=== PATIENT | male | born 1940 | race Caucasian/White ===

== ENCOUNTER 2023-05-06 15:26 | Outpatient (CLI) | payer MEDICARE, BC, SELFPAY ==
--- NOTE | 2023-05-06 16:00 | CRLHL7_ITS ---
For Patients: As a result of the Century Cures Act, medical imaging exams and procedure reports are released immediately into your electronic medical record. You may view this report before your referring provider. If you have questions, please contact your health care provider. INDICATION: Dizziness and left paresthesias TECHNIQUE: CT head without contrast. COMPARISON: None. FINDINGS: CSF spaces: Within normal limits for age. Brain parenchyma: The terrazas-white differentiation is normal. No sign of mass, hemorrhage, or midline shift. Mild cerebral atrophy. Small low-density within the deep white matter. Skull base and calvarium: The visualized paranasal sinuses and mastoid air cells demonstrate no acute or significant findings. The visualized orbits are grossly unremarkable. No skull fractures. Atherosclerosis. IMPRESSION: 1. No intracranial bleed or mass effect. 2. Cerebral atrophy with nonspecific white matter disease, likely microangiopathy. Please note that all CT scans at this facility use dose modulation, iterative reconstruction, and/or weight-based dosing when appropriate to reduce radiation dose to as low as reasonably achievable. Dictated by Odin Gaming MD @ 05/06/2023 4:01:57 PM (Electronically Signed)
== END 2023-05-06 15:27 | disposition home or self-care (01) ==
PROVIDERS: PCP Family Medicine; Visit Provider Family Medicine
DX: G45.9 Transient cerebral ischemic attack, unspecified (principal); R42 Dizziness and giddiness
CPT/HCPCS: 70450; 84443; 85730

== ENCOUNTER 2024-01-27 11:28 | Outpatient (CLI) | payer MEDICARE, BC, SELFPAY ==
--- OUTSIDE RECORDS SUMMARY | 2024-01-27 11:38 | XMS_ITS | Continuity of Care Document ---
Author Name [facility] Organization [facility] Care Team Providers Care Glassine Machine Tender Name Role Phone [facility] Unavailable Unavailable Problems Combined list of problems from Department of [facility] and Veterans Affairs facilities. It does not include entries that were removed or entered in error. Problem Status Onset Date Problem Type Date of Resolution Comments Source Benign essential hypertension Active Condition [facility] Benign hypertension Active Condition [facility] History of mitral valve repair Active Condition [facility] Hyperlipidemia Active Condition [facility] Impact[facility] cerumen Active Condition [facility] Lipidemia Active Condition [facility] Lower urinary tract symptoms [facility] Nonexudative age-related macular degeneration Active Condition [facility] Obesity Active Condition [facility] Sensorneural Comb TYP Bilat Active Condition [facility] Subjective tinnitus Active Condition [facility] Diagnosis: ICD-10-CM 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, l eye, 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 [facility] Diagnosis: ICD-10-CM H35.3114 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, r eye, 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 [facility] Diagnosis: ICD-10-CM H90.3 Sensorineural hearing loss, bilateral Active Diagnosis [facility] Diagnosis: ICD-10-CM Z00.00 Encntr for general adult medical exam w/o abnormal findings Active Diagnosis [facility] Diagnosis: ICD-10-CM H35.30 Unspecified macular degeneration Active Diagnosis [facility] Medications Combined list of outpatient medications from Department of Defense and Veterans Affairs facilities.Medications provided include 1) outpatient medications from the last 15 months, and 2) patient-reported medications. Medication Details Route Status Patient Instructions Prescription Expires Prescription Number Last Dispense Date Ordering Provider Order Date Order Qty Source ACETAMINOPH EN TAB ACETAMIN OPHEN TAB Non-VA TAKE 500-1000 MG BY MOUTH Q6H PRN Aug 02, 2017 Non-VA Document ed by: Satinder ALBERTO [facility] A Document ed at: [facility] 2017 [facility] ATORVASTATI N [place] 40MG TAB ATORVAST ATIN [place] 40MG TAB Non-VA TAKE ONE-HALF TABLET BY MOUTH AT BEDTIME Aug 02, 2017 Non-VA Document ed by: Satinder ALBERTO A Document ed at: [facility] ORAL ACTIVE DOLLY,[facility] A 2017 [facility] DONEPEZIL HCL 10MG TAB DONEPEZI L HCL 10MG TAB Non-VA TAKE ONE-HALF TABLET BY MOUTH TWICE A DAY Jun 21, 2020 Non-VA Document ed by: Satinder ALBERTO [facility] A Document ed at: [facility] ORAL ACTIVE DOLLY,[facility] A 2020 [facility] FINASTERIDE 5MG TAB FINASTER NOAH 5MG TAB Non-VA TAKE ONE TABLET BY MOUTH EVERY DAY Jun 21, 2020 Non-VA Document ed by: Satinder ALBERTO A Document ed at: [facility] ORAL ACTIVE DOLLY,[facility] A 2020 [facility] HYDROCHLORO THIAZIDE 25MG TAB HYDROCHL OROTHIAZ NOAH 25MG TAB Non-VA TAKE ONE TABLET BY MOUTH EVERY DAY Aug 02, 2017 Non-VA Document ed by: Satinder ALBERTO [facility] A Document ed at: [facility] ORAL ACTIVE DOLLY,[facility] A 2017 [facility] KETOTIFEN 0.025% SOLN,OPH KETOTIFE N 0.025% SOLN,OPH Active INSTILL 1 DROP IN BOTH EYES TWO TIMES A DAY NEEDED FOR EYE ALLERGIE S FOR EYE ALLERGIE S October 10, 2023 5 October 10, 2024 [id number] A October 11, 2023 [facility] OPHTHA LMIC ACTIVE 10/10/2024 [id number] BULMARO MAYA 2023 5 [facility] KETOTIFEN 0.025% SOLN,OPH KETOTIFE N 0.025% SOLN,OPH Disconti nued INSTILL 1 DROP IN BOTH EYES TWO TIMES A DAY NEEDED FOR EYE ALLERGIE S FOR EYE ALLERGIE S Oct 04, 2022 5 Oct 05, 2023 [id number] Aug 26, 2023 [facility] Junito [facility] OPHTHA LMIC DISCONT INUED 10/05/2023 [id number] [facility]UL[facility] 2022 5 [facility] LISINOPRIL 40MG TAB LISINOPR [place] 40MG TAB Non-VA TAKE ONE-HALF TABLET BY MOUTH EVERY DAY Aug 02, 2017 Non-VA Document ed by: Satinder ALBERTO A Document ed at: [facility] ORAL ACTIVE DANAE ALBERTO A 2017 [facility] MULTIVIT/OP HTH AREDS2/LUTE IN/ZEAXANTH IN CAP/TAB MULTIVIT /OPHTH AREDS2/L UTEIN/ZE AXANTHIN CAP/TAB Active TAKE 1 CAP/TAB BY MOUTH TWICE A DAY October 10, 2023 120 October 10, 2024 [id number] K November 05, 2023 [facility] ORAL ACTIVE 10/10/2024 [id number] BULMARO MAYA 2023 120 [facility] MULTIVIT/OP HTH AREDS2/LUTE IN/ZEAXANTH IN CAP/TAB MULTIVIT /OPHTH AREDS2/L UTEIN/ZE AXANTHIN CAP/TAB Disconti nued TAKE 1 CAP/TAB BY MOUTH TWICE A DAY Oct 04, 2022 120 Oct 05, 2023 [id number] J Sep 16, 2023 [facility] ORAL DISCONT INUED 10/05/2023 [id number] 4 BULMARO MAYA 2022 120 [facility] NITROGLYCER IN 0.4MG TAB,SUBLING UAL NITROGLY CERIN 0.4MG TAB,SUBL INGUAL Non-VA DISSOLVE ONE TABLET UNDER THE TONGUE EVERY 5 MINUTES FOR UP TO 3 DOSES IF NEEDED Jul 10, 2021 Non-VA Document ed by: Satinder ALBERTO A Document ed at: [facility] SUBLIN GUAL ACTIVE DANAE ALBERTO 2021 [facility] TAMSULOSIN HCL 0.4MG CAP TAMSULOS IN HCL 0.4MG CAP Non-VA TAKE 1 CAPSULE BY MOUTH EVERY DAY Aug 02, 2017 Non-VA Document ed by: Satinder ALBERTO [facility] A Document ed at: [facility] ORAL ACTIVE DANAE ALBERTO 2017 [facility] Immunizations Combined list of available immunizations from the Department of Defense and Veterans Affairs facilities. Immunization Series Date Given Administered By Site Reaction Lot Number CVX Code Drug Bladder Blower Status Comments Source COVID-19 ([employer]), MRNA, LNP-S, BIVALENT BOOSTER, PF, 30 MCG/0.3 ML DOSE 1 2021 300 complet ed [facility] COVID-19 ([employer]), MRNA, LNP-S, PF, 30 MCG/0.3 ML DOSE 3 2020 208 complet ed [facility] COVID-19 ([employer]), MRNA, LNP-S, PF, 30 MCG/0.3 ML DOSE 2 2020 208 complet ed PFR; [id number]; 1 [facility] COVID-19 ([employer]), MRNA, LNP-S, PF, 30 MCG/0.3 ML DOSE 1 2020 208 complet ed PFR; [id number]; 1 [facility] INFLUENZA, SEASONAL, INJECTABLE 2017 141 complet ed [facility] TDAP 2017 115 complet ed [employer] [id number] exp 05/24/19 [facility] INFLUENZA, HIGH DOSE SEASONAL 2016 135 complet ed [facility] INFLUENZA, HIGH DOSE SEASONAL 2015 135 complet ed [facility] INFLUENZA, SEASONAL, INJECTABLE 2014 141 complet ed [facility] PNEUMOCOCCAL POLYSACCHARID E PPV23 2014 33 complet ed [facility] INFLUENZA, HIGH DOSE SEASONAL 2013 135 complet ed [facility] ZOSTER LIVE 2013 121 complet ed [facility] Encounters Combined list of: 1) Encounters from Department of Veterans Affairs facilities going back up to thelast 18 months. 2) Encounters from the Department of Defense facilities going back up to 280 months. Location Location Details Encounter Type Encounter Number Reason For Visit Attending Provider ADM Date DC Date Status Disposition Source [facility] Outpatient Encounter [id number] 07/17 [facility] OFFICE O/P EST MOD 30-39 MIN [id number] Diagnos is: ICD-10- CM H35.30 Unspeci fied macular degener ation<b r/> FRANCESCO,STEW ART J 10/04 [facility] Outpatient Encounter [id number] Diagnos is: ICD-10- CM Z00.00 Encntr for general adult medical exam w/o abnorma l finding s
MURRAY ALBERTO H A 10/12 [facility] OFF/OP EST MAY X REQ PHY/QHP [id number] Diagnos is: ICD-10- CM H90.3 Sensori neural hearing loss, bilater al
REBECCA FERRISRA E 07/09 [facility] HEARING AID REPAIR/MOD IFYING [id number] Diagnos is: ICD-10- CM H90.3 Sensori neural hearing loss, bilater al
DOC BARAHONA ICA L 08/19 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
FRANCESCO,STEW ART J 10/09 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
SIRIA HARTMAN 11/11 [facility] Social History Combined list of available smoking, tobacco, and other social history from Department of Defense and Veterans Affairs facilities. Social History Type Response Date Comment Sourc e Tobacco smoking status NHIS VA-TOBACCO FORMER USER 10/12/2022 [facility] History of tobacco use PR-TOBACCO QUIT 1 5 YRS OR MORE 10/12/2022 [facility] History of tobacco use VA-TOBACCO FORMER USER 06/17/2018 [facility] History of tobacco use FORMER TOBACCO US ER 7Y OR GREATER 08/02/2017 [facility] History of tobacco use FORMER TOBACCO US ER 7Y OR GREATER 08/02/2016 [facility] History of tobacco use FORMER TOBACCO US ER 7Y OR GREATER 06/28/2015 [facility] History of tobacco use FORMER TOBACCO US ER 7Y OR GREATER 04/21/2014 [facility] Plan of Care List of future care activities from Department of Veterans Affairs facilities. Additional future care activities may be listed in the Assessment and Plan section. Date/Time Care Activity Care Activity Detail Facili ty 05/12/2024 AMBULATORY - SURGERY AMBULATORY - SURGERY [facility] Advance Directives List of completed, amended, or rescinded Advance Directives on record at Department of Veterans Affairs facilities. An actual copy of the Directive is not included. Date Advance Directive Provider Source 04/10/2019 ADVANCE DIRECTIVE MIGUEL CORBETT [facility] 04/10/2019 ADVANCE DIRECTIVE DISCUSSION MIGUEL CORBETT [facility]
--- OUTSIDE RECORDS SUMMARY | 2024-01-27 11:38 | XMS_ITS | Encounter Summary ---
Author Organization [facility] Address [address] [place] [address]. [place] [address] Care Team Providers Care Analytical Chemist Name Role Phone Mango Almanza Primary Care Provider + [phone] Moi Chavez MD Unavailable [phone] Moi Chavez MD Unavailable [phone] Reason for Visit * Reason Onset Date Comments Orders 11/20/2021 Labs UA Encounter Details Date Type Department Care Team (Late st Contact Info) Description 11/20/2021 Telephone [facility] Urology Clinic [address] [place] [address] Moi Chavez MD [address] [place], [place] [address] Orders (Labs UA) Social History Tobacco Use Types Packs/Day Years Used Date Smoking Tobacco: Former Smokeless Tobacco: Never Alcohol Use Standard Drinks/Week Comments Yes 1 (1 standard drink = 0.6 oz pur e alcohol) AUDIT-C Answer Date Recorded Q1: How often do you have a drink containing alc ohol? 2-4 times a month 05/26/2019 Average Number of Drinks Not on file 019 Frequency of Binge Drinking Not on file 05/10 PHQ-2 Answer Date Recorded PHQ-2 Score 0 12/29/2019 Sex and Gender Information Value Date Recorded Sex Assigned at Not on file Gender Identity Not on file Sexual Orientation Not on file COVID-19 Exposure Response Date Recorded In the last 10 days, have yo u been in contact with someone who was confirmed or suspected to have Coronavirus/COVID-19? Unable to assess 11/20/2021 8:35 AM CDT documented as of this encounter Miscellaneous Notes * Telephone Encounter - Bella Hook - 11/20/2021 8:37 AM CDT [facility] Phone Message May a detailed message be left on voicemail: yes Reason for Call: Order(s): Other: Reason for requested: Labs UA Date needed: 02/08/22 Provider name: Dr Chavez Action Taken: Message routed to: Other: uro Travel Screening: Not Applicable documented in this encounter Plan of Treatment Upcoming Encounters Date Type Department Care Team (Late st Contact Info) Description 03/12/2024 9:00 AM CDT Office Visit [facility] Urology Clinic [address] [place] [address] Moi Chavez MD [address] [id number] documented as of this encounter Visit Diagnoses Diagnosis Benign prostatic hyperplasia, unspecified whether lower urinary tract symptoms present- Primary documented in this encounter Care Teams Analytical Chemist Relationship Specialty Start Date End Date Mango Almanza [address] [address] PCP - General Family Practice 03/03/15 Moi Chavez MD [address] [address] Urology 11/15/20 Moi Chavez MD [address] [id number] Assigned Surgical Provider 02/12/21 documented as of this encounter
--- OUTSIDE RECORDS SUMMARY | 2024-01-27 11:38 | XMS_ITS | Clinical Summary ---
Author Organization [facility] Address [address] [place] [address] Care Team Providers Care Tug Master Name Role Phone Mango Almanza Primary Care Provider + [phone] Moi Chavez MD Unavailable [phone] Moi Chavez MD Unavailable [phone] Allergies Active Allergy Reactions Criticality Noted Date Comments Carvedilol Other (See Comments) 10/29/2022 Bradycardia, dizzy Medications Medication Sig Dispensed Refills Start Date End Date Status aspirin 81 MG EC tablet Take 81 mg by mouth daily Active atorvastatin (LIPITOR) 20 MG tablet Take 20 mg by mouth At Bedtime Active nitroglycerin (NITROSTAT) 0.[address] 0.4 mg under the tongue every 5 minutes as needed for chest pain Active multivitamin (OCUVITE) TABS Take 1 tablet by mouth daily Active metoprolol (LOPRESSOR) 25 MG tablet Take 25 mg by mouth 2 times daily Active hydrochlorothiazide 12.5 MG TABS Take 12.5 mg by mouth every morning Active lisinopril (PRINIVIL,ZESTRIL) 20 MG tablet Take 20 mg by mouth At Bedtime Active carvedilol (COREG) 3.125 MG tablet Take 3.125 mg by mouth Active donepezil (ARICEPT) 5 MG tablet 02/24/2019 Active Albuterol Sulfate (VENTOLIN HFA IN) Inhale 90 mcg into the lungs as needed 2 puffs as needed Active acetaminophen (TYLENOL) 500 MG tablet Take 500-1,000 mg by mouth every 6 hours as needed for mild pain Active hydrocortisone 2.5 % creamIndications:Akash gn prostatic hyperplasia with incomplete bladder emptying Apply topically 2 times daily Active ketoconazole (NIZORAL) 2 % external creamIndications:Akash gn prostatic hyperplasia with incomplete bladder emptying Apply topically daily Active ELIQUIS ANTICOAGULANT 5 MG tablet Take 5 mg by mouth 2 times daily Active finasteride (PROSCAR) 5 MG tabletIndications:Jeb ign prostatic hyperplasia with incomplete bladder emptying Take 1 tablet (5 mg) by mouth daily 90 tablet 3 02/28/2023 Active tamsulosin (FLOMAX) 0.4 MG capsuleIndications:Be nign prostatic hyperplasia with incomplete bladder emptying Take 1 capsule (0.4 mg) by mouth daily 90 capsule 3 02/28/2023 Active Active Problems No known active problems Family History Medical History Relation Comments Parkinsonism Father Cancer Sister Relation Status Comments Brother 1 Alive Brother 2 Alive Father Maternal Grandfather Maternal Grandmother Mother Paternal Grandfather Paternal Grandmother Sister Social History Tobacco Use Types Packs/Day Years Used Date Smoking Tobacco: Former Smokeless Tobacco: Never Tobacco Cessation:Counseling Given: Not Answered Alcohol Use Standard Drinks/Week Comments Yes 1 (1 standard drink = 0.6 oz pur e alcohol) AUDIT-C Answer Date Recorded Q1: How often do you have a drink containing alc ohol? 2-4 times a month 05/26/2019 Average Number of Drinks Not on file 019 Frequency of Binge Drinking Not on file 05/10 PHQ-2 Answer Date Recorded PHQ-2 Score 0 12/29/2019 Adolescent Education Answer Date Record ed Getting School Help Needed Not on file 03/25 Sex and Gender Information Value Date Recorded Sex Assigned at Not on file Gender Identity Not on file Sexual Orientation Not on file Last Filed Vital Signs Vital Sign Reading Time Taken Comments Blood Pressure 152/98 02/28/2023 10:20 AM CDT Pulse 63 02/28/2023 10:20 AM CDT Temperature 37 ??C (98.6 ??F) 03/04/2015 4:42 AM CDT Respiratory Rate 18 03/04/2015 10:37 AM CDT Oxygen Saturation 95% 02/10/2021 3:20 PM CDT Inhaled Oxygen Concentration - - Weight 108.9 kg (240 lb) 02/28/2023 10:20 AM CDT Height 188 cm (6' 2) 02/28/2023 10:20 AM CDT Body Mass Index 30.81 02/28/2023 10:20 AM CDT Plan of Treatment Upcoming Encounters Date Type Department Care Team (Late st Contact Info) Description 03/12/2024 9:00 AM CDT Office Visit [facility] Urology Clinic [address] [place] [address] Moi Chavez MD [address] [place] [address] Health Maintenance Due Date Last Done Comments ADVANCE CARE PLANNING 1940 ANNUAL REVIEW OF HM ORDERS 1940 LIPID 1940 RSV VACCINE ( & 60+) (1 - 1-dose 60+ series) 1999 FALL RISK ASSESSMENT 10/13/2004 MEDICARE ANNUAL WELLNESS VISIT 10/13/2004 ZOSTER IMMUNIZATION (2 of 3) 03/05/2014 01/08/2014, 03/18/2007 PHQ-2 (once per calendar year) 2023 12/29/2019, 05/26/2019 INFLUENZA VACCINE (#1) 2024 , 03/20/2022, 04/03/2021, Additional history exists DTAP/TDAP/TD IMMUNIZATION (4 - Td or Tdap) 08/02/2027 08/02/2017, 01/12/2016, 07/24/2010, Additional history exists Pneumococcal Vaccine: 65+ Years Completed 10/26/2014, 10/26/2014, 06/10/2014, Additional history exists COVID-19 Vaccine Completed 11/08/2023, , 03/05/2022, Additional history exists HPV IMMUNIZATION Aged Out No longer e ligible based on patient's age to complete this topic IPV IMMUNIZATION Aged Out No longer e ligible based on patient's age to complete this topic MENINGITIS IMMUNIZATION Aged Out No l onger eligible based on patient's age to complete this topic RSV MONOCLONAL ANTIBODY Aged Out No l onger eligible based on patient's age to complete this topic Advance Directives For more information, please contact: [phone] * Full Code (Latest Code Status on File) Date Activated Date Inactivated Comments 03/04/2015 10:20 AM * Full Code Date Activated Date Inactivated Comments 03/03/2015 6:33 PM 03/04/2015 10:20 AM Care Teams Tug Master Relationship Specialty Start Date End Date Mango Almanza [address] [address] PCP - General Family Practice 03/03/15 Moi Chavez MD [address] [address] Urology 11/15/20 Moi Chavez MD [address] [id number] Assigned Surgical Provider 02/12/21
--- OUTSIDE RECORDS SUMMARY | 2024-01-27 11:38 | XMS_ITS | Referral Summary ---
Author Organization [facility] Address [address] [place] [address] Care Team Providers Care Section Housekeeper Name Role Phone Unavailable Primary Care Provider Unavailabl e Source Comments Patient records contain information from all sites at [facility]. For routine questions regarding patient records, call [phone] during business hours, M-F 8:00 AM - 5:00 PM Central Time. Record requests for emergency care only can be directed to [phone] at any time.[facility] Allergies Active Allergy Reactions Criticality Noted Date Comments Carvedilol Other (see comments) 10/29/2022 Bradycardia, dizzy Medications Medication Sig Dispensed Refills Start Date End Date Status atorvastatin (LIPITOR) 20 mg tablet Take 20 mg by mouth daily. Active hydroCHLOROthiazid e (HYDRODIURIL) 25 mg tablet Take 25 mg by mouth daily. Active lisinopril (PRINIVIL,ZESTRIL) 20 mg tablet Take 20 mg by mouth daily. Active tamsulosin (FLOMAX) 0.4 mg 24 hr capsule Take 0.4 mg by mouth daily. Active vitamin A,C,S-jhgirs-flzmu als (OCUVITE W/LUTEIN) 1,000 Unit-200 mg-60 Unit-2 mg tablet Take 1 tablet by mouth 2 (two) times a day. Active albuterol (PROVENTIL HFA,VENTOLIN HFA) 90 mcg/actuation inhaler Inhale 2 puffs every 4 (four) hours as needed for wheezing. Active diclofenac sodium (VOLTAREN) 1 % gel Apply topically 2 (two) times a day as needed. Active acetaminophen (TYLENOL) 500 mg capsule Take 1,000 mg by mouth every 6 (six) hours as needed for pain. Active donepeziL (ARICEPT) 5 mg tablet Take 5 mg by mouth at bedtime. 04/29/2021 Active finasteride (PROSCAR) 5 mg tablet Take 5 mg by mouth daily. 05/28/2021 Active memantine (NAMENDA) 10 mg tablet 06/06/2021 Active nitroglycerin (NITROSTAT) 0.[address] 1-3 tablets under the tongue as needed. 10/03/2011 Active hydrocortisone (HYTONE) 2.5 % cream Apply topically as needed. Active ketoconazole (NIZORAL) 2 % cream Apply topically as needed. Active Eliquis 5 mg tablet Take 1 tablet (5 mg total) by mouth 2 (two) times a day. 180 tablet 3 01/03/2023 Active amoxicillin (AMOXIL) 500 mg capsule TAKE FOUR CAPSULES BY MOUTH 1 HOUR PRIOR TO DENTAL APPOINTMENT 02/22/2023 Active Active Problems Problem Noted Date Diagnosed Date Lightheadedness 05/23/2023 Atrial Fibrillation Other Persistent 05/23/2023 Coronary Stent Status Post 01/03/2023 Repair Mitral Valve Status Post 11/07/2017 Coronary Artery Disease Without Angina Pectoris 11/14/2016 Overview (12/15/2016): Coronary Artery Disease (CAD) NOS Per External Records Hypertensive Heart Disease Without Heart Failure 11/14/2016 Overview (12/15/2016): Hypertension (HTN) NOS Per External Records Immunizations Name Administration Dates Next Due HZV (ZOSTAVAX) 03/18/2007 Influenza, Unspecified 04/03/2016 Pneumococcal, Unspecified 10/26/2014,02/28/2006 Td (Adult), adsorbed 11/22/2006 Tdap 01/12/2016 Social History Tobacco Use Types Packs/Day Years Used Date Smoking Tobacco: Former Smokeless Tobacco: Never Tobacco Cessation:Counseling Given: Not Answered Alcohol Use Standard Drinks/Week Comments Not Currently 0 (1 standard drink = 0.6 oz pur e alcohol) a couple times a month maybe Nutrition Answer Date Recorded Nutrition: EVOO Fat Source Unknown 08/12 Nutrition: Servings of Fruits/Vegetables per Day Not on file 08/12/2020 Dental Answer Date Recorded Dental: Regular Dentist Unknown 08/13/19 Sex and Gender Information Value Date Recorded Sex Assigned at Not on file Gender Identity Not on file Sexual Orientation Not on file Last Filed Vital Signs Vital Sign Reading Time Taken Comments Blood Pressure 125/83 05/23/2023 9:08 AM SPOILAGE WORKER Pulse 51 05/23/2023 9:03 AM SPOILAGE WORKER Temperature 36.3 ??C (97.3 ??F) 05/23/2023 9:03 AM CS T Respiratory Rate 16 06/08/2021 12:53 PM SPOILAGE WORKER Oxygen Saturation 95% 05/23/2023 9:03 AM SPOILAGE WORKER Inhaled Oxygen Concentration - - Weight 107 kg (236 lb 12.4 oz) 05/23/2023 9:03 A M SPOILAGE WORKER Height 186.6 cm (6' 1.47) 01/03/2023 8:43 AM CD T Body Mass Index 30.84 01/03/2023 8:43 AM CDT Plan of Treatment Not on file Medical Devices Implanted Type Area Shot Peen Operator Device Identifier Shelf Expiration Date Model / Serial / Lot Xience Stent 2.5 X 15 - [id number] Implanted:Qty: 1 on 10/03/2011 Cardiac Stent Durán Description:Device Manufactu rer - [employer]. Device Status Text - [id number]. Ring Annuloflex Carbomedics 34mm - [place] [id number] Implanted:Qty: 1 on 12/01/2014 Cardiac Valve Prosthesis Other/Legacy - See Implant Description Carbomedics Description:Device Manufactu rer - Carbomedics. Body Location - Other. Mitral. Device Status Text - [id number]. Procedures Procedure Name Priority Date/Time Associated Diagnosis Comments BASIC METABOLIC PANEL, S/P Routine 03/30/2021 2:31 PM CDT Bradycardia from Last 3 Months or Most Recently Relevant to Health Maintenance Results * (ABNORMAL) Basic Metabolic Panel (03/30/2021 2:31 PM CDT) Pathologist [facility] Potassium, P 3.8 3.6 - 5.2 mmol/L 03/30/2021 3:29 PM CDT CNFL Comment:Testing performed on serum Sodium, P 142 135 - 145 mmol/L 03/30/2021 3:29 PM CDT CNFL Chloride, P 101 98 - 107 mmol/L 03/30/2021 3:29 PM CDT CNFL Bicarbonate, P 34(H) 22 - 29 mmol/L 03/30/2021 3:29 PM CDT CNFL Anion Gap, P 7 7 - 15 03/30/2021 3:29 PM CDT CNFL BUN (Blood Urea Nitrogen), P 17 8 - 24 mg/dL 03/30/2021 3:29 PM CDT CNFL Creatinine 1.19 0.74 - 1.35 mg/dL 03/30/2021 3:29 PM CDT CNFL eGFR-Black/Afric an Romanian 66 >=60 mL/min/BSA 03/30/2021 3:29 PM CDT CNFL Comment: ----ADDITIONAL INFORMATION---- Estimated GFR calculated using the 2009 CKD_EPI creatinine equation. eGFR Non-Black/Sahra n Romanian 57(L) >=60 mL/min/BSA 03/30/2021 3:29 PM CDT CNFL Comment: ----ADDITIONAL INFORMATION---- Estimated GFR calculated using the 2009 CKD_EPI creatinine equation. Calcium, Total, P 9.4 8.8 - 10.2 mg/dL 03/30/2021 3:29 PM CDT CNFL Glucose, P 102 70 - 140 mg/dL 03/30/2021 3:29 PM CDT CNFL Blood (Blood, Venous) 03/30/2021 2:31 PM CDT 03/30/2021 2:33 PM CDT Lennox Koroma M.D. LAB BLOOD ADD-ON [facility] [address] [place] [id number], [facility] CNFL [facility] in [address] [address] from Last 3 Months or Most Recently Relevant to Health Maintenance
--- OUTSIDE RECORDS SUMMARY | 2024-01-27 11:38 | XMS_ITS | Clinical Summary ---
Author Organization [facility] Address [address] [place] [address] Care Team Providers Care Patient Support Assistant Name Role Phone Unavailable Primary Care Provider Unavailabl e Source Comments Patient records contain information from all sites at [facility]. For routine questions regarding patient records, call [phone] during business hours, M-F 8:00 AM - 5:00 PM Central Time. Record requests for emergency care only can be directed to [phone] at any time.[facility] Allergies Active Allergy Reactions Criticality Noted [...] 0.4 mg by mouth daily. Active vitamin A,C,D-hrssvb-cyltm als (OCUVITE W/LUTEIN) 1,000 Unit-200 mg-60 Unit-2 [...] 10/26/2014,02/28/2006 Td (Adult), adsorbed 11/22/2006 Tdap 01/12/2016 Family History Medical History Relation Name Comments Parkinson disease Father Dementia Mother Cancer Sister Smoker Sister Relation Name Status Comments Father (Age 92) Mother (Age 97) Sister Social History Tobacco Use Types Packs/Day [...] Date Recorded Dental: Regular Dentist Unknown 08/13/19 21 Sex and Gender Information Value Date Recorded Sex Assigned at Not on file Gender Identity Not on file Sexual Orientation Not on file Last Filed Vital Signs Vital Sign Reading Time Taken Comments Blood Pressure 125/83 05/23/2023 9:08 AM SYSTEM DISPATCHER Pulse 51 05/23/2023 9:03 AM SYSTEM DISPATCHER Temperature 36.3 ??C (97.3 ??F) 05/23/2023 9:03 AM CS T Respiratory Rate 16 06/08/2021 12:53 PM SYSTEM DISPATCHER Oxygen Saturation 95% 05/23/2023 9:03 AM SYSTEM DISPATCHER Inhaled Oxygen Concentration - - Weight 107 kg (236 lb 12.4 oz) 05/23/2023 9:03 A M SYSTEM DISPATCHER Height 186.6 cm (6' 1.47) 01/03/2023 8:43 AM CD T Body Mass Index 30.84 01/03/2023 8:43 AM CDT Plan of Treatment Health Maintenance Due Date Last Done Comments Zoster Vaccines (2 of 3) 03/05/2014 01/08/2014, 02/2007 Pneumococcal vaccine (65+ ye ars) (2 of 2 - PCV) 10/27/2015 10/26/2014, 10/26/2014, 06/10/2014, Additional history exists Creatinine Level (Kidney Fun ction Test) 03/30/2022 03/30/2021, 10/21/2017, 09/16/2017, Additional history exists Potassium Level 03/30/2022 03/30/2021, 10/08, 09/16/2017, Additional history exists Sodium Level 03/30/2022 03/30/2021, 10/08, 09/16/2017, Additional history exists Depression Screening (Annual PHQ-2) 06/10/2023 Fall Risk Screen (Annual) 06/10/2023 COVID-19 Vaccine (7 2022-2 4 season) 2023 03/28/2023, 03/05/2022, 09/22/2021, Additional history exists Influenza Vaccine (#1) 2024 , 03/20/2022, 04/03/2021, Additional history exists Office Visit for Blood Press ure Check / Re-check 05/23/2024 05/23/2023 DTaP,Tdap,and Td Vaccines (4 - Td or Tdap) 08/02/2027 08/02/2017, 01/12/2016, 07/24/2010, Additional history exists Medical Devices Implanted Type Area Portfolio Analyst Device Identifier Shelf Expiration Date Model / Serial / Lot Xience Stent 2.5 X 15 - [place] [id number] Implanted:Qty: 1 on 10/03/2011 Cardiac Stent Durán Description:Device Manufactu rer - [employer]. Device Status Text - [id number]. Ring Annuloflex Carbomedics 34mm - [place] [id number] Implanted:Qty: 1 on 12/01/2014 Cardiac Valve Prosthesis Other/Legacy - See Implant Description Carbomedics Description:Device Manufactu rer - Carbomedics. Body Location - Other. Mitral. Device Status Text - [id number]. Procedures Procedure Name Priority Date/Time Associated Diagnosis Comments BASIC METABOLIC PANEL, S/P Routine 03/30/2021 2:31 PM CDT Bradycardia from Last 3 Months or Most Recently Relevant to Health Maintenance Results * (ABNORMAL) Basic Metabolic Panel (03/30/2021 2:31 PM CDT) Pathologist [facility] Potassium, P 3.8 3.6 - 5.2 mmol/L [...] 03/30/2021 3:29 PM CDT CNFL eGFR-Black/Afric an Comoran 66 >=60 mL/min/BSA 03/30/2021 3:29 PM CDT CNFL Comment: ----ADDITIONAL INFORMATION---- Estimated GFR calculated using the 2009 CKD_EPI creatinine equation. eGFR Non-Black/Sahra n [place]or[place] 57(L) >=60 mL/min/BSA 03/30/2021 3:29 PM CDT CNFL Comment: ----ADDITIONAL INFORMATION---- Estimated GFR calculated using the 2009 CKD_EPI creatinine equation. Calcium, Total, P 9.4 8.8 - 10.2 mg/dL 03/30/2021 3:29 PM CDT CNFL Glucose, P 102 70 - 140 mg/dL 03/30/2021 3:29 PM CDT CNFL Blood (Blood, Venous) 03/30/2021 2:31 PM CDT 03/30/2021 2:33 PM CDT Lennox Koroma M.D. LAB BLOOD ADD-ON [facility] [address] [place] [id number], [place] CNFL [facility] in [address] [address] from Last 3 Months or Most Recently Relevant to Health Maintenance
--- OUTSIDE RECORDS SUMMARY | 2024-01-27 11:38 | XMS_ITS ---
Author Organization [facility] Address [address] [place] [address] Care Team Providers Care Media Sales Consultant Name Role Phone Unavailable Unavailable Unavailable Surgery Details Not on file Complications Check Surgery Details section. Procedure Estimated Blood Loss Check Surgery Details section. Procedure Findings Check Surgery Details section. Procedure Specimens Taken Check Surgery Details section.
--- OUTSIDE RECORDS SUMMARY | 2024-01-27 11:38 | XMS_ITS | Referral Summary ---
Author Organization [facility] Address [address] [place] [address] Care Team Providers Care Roving Teller Name Role Phone Mango Almanza Primary Care Provider + [phone] Moi Chavez MD Unavailable [phone] Moi Chavez MD Unavailable [phone] Allergies Active Allergy Reactions Criticality Noted [...] Active Active Problems No known active problems Social History Tobacco Use Types Packs/Day Years [...] Description 03/12/2024 9:00 AM CDT Office Visit [facility] [address] [place] [id number] Moi Chavez MD [address] [id number] Advance Directives For more information, please contact: [phone] * Full Code (Latest Code Status on File) Date Activated Date Inactivated Comments 03/04/2015 10:20 AM * Full Code Date Activated Date Inactivated Comments 03/03/2015 6:33 PM 03/04/2015 10:20 AM Care Teams Roving Teller Relationship Specialty Start Date End Date Mango Almanza [address] [address] PCP - General Family Practice 03/03/15 Moi Chavez MD [address] [id number] Urology 11/15/20 Moi Chavez MD [address] [id number] Assigned Surgical Provider 02/12/21
== END 2024-01-27 11:29 | disposition home or self-care (01) ==
PROVIDERS: PCP Family Medicine; Visit Provider Family Medicine
DX: I10 Essential (primary) hypertension (principal)
CPT/HCPCS: 80053; 82043; 82570

== ENCOUNTER 2024-01-28 13:20 | Outpatient (RCR) | payer MEDICARE, BC, SELFPAY ==
--- NOTE | 2024-01-28 16:49 | PT.OPE ---
PT [place] [facility] PT [facility] Outpatient Eval Start: 01/28/24 14:49 Freq: Status: Active Protocol: Document 01/28/24 14:49 BMS (Rec: 01/28/24 14:58 BMS [id number]) E-signed By Elizabeth Allen PT Physical Therapy Outpatient Evaluation Insurance Information Recert Due Date 04/26/24 Insurance Name Blue Cross/[employer] Provider Fax Number internal Medical Diagnosis unstable balance other abnormalities of gait and mobility R26.89 Treating Diagnosis other abnormalities of gait and mobility R26.89 Referring MD Brynn Priest MD Subjective Preferred Name Agusto Subjective dont know that you can do anything for me, it really isnt bad but doctor thought I should come and maybe get a cane. I don't know that I need one. Pain Comments usual aches and pains of getting older Current Work Status Retired Precautions Treatment Precautions/Contraindications Per EMR provider note 01/27/24 New onset a-fib (Acute) I48. 91 - Unspecified atrial fibrillation (ICD-10) BPH (benign prostatic hyperplasia) (Acute) follows with urology; no history of cancer per report N40.0 - Benign prostatic hyperplasia without lower urinary tract symptoms (ICD-10) Macular degeneration (Acute) [facility] H35.30 - Unspecified macular degeneration (ICD-10) Cognitive dysfunction (Acute) followed by [facility] F09 - Unspecified mental disorder due to known physiological condition (ICD-10) MARTINA (obstructive sleep apnea) (Acute) sleeps with cpap, follows yearly G47.33 - Obstructive sleep apnea (adult ) (pediatric) (ICD-10) CAD (coronary artery disease) (Acute) follows with [place], yearly, sp stent placement I25.10 - Atherosclerotic heart disease of [place] coronary artery without angina pectoris (ICD-10) Bradycardia (Acute) R00.1 - Bradycardia, unspecified (ICD- 10) Ascending aorta dilation ( Acute) follows with [place] I77. 810 - Thoracic aortic ectasia (ICD-10) Rosacea (Acute) L71.9 - Rosacea, unspecified (ICD-10) Hypertension (Acute) I10 - Essential (primary) hypertension (ICD-10) Hyperlipidemia (Acute) E78.5 - Hyperlipidemia, unspecified (ICD-10) Objective Range of Motion cervical flex WFL, ext mod loss, B rotation ~ 40 degrees not formally measured B shoulder, elbow ROM WFL B hip flex and knee ext WFL. ankle DF 5 degrees Strength MMT B LE grossly 5/5. Palpation not assessed this date. Balance & Gait Gait: without assistive device : wider base of support preferred, COG forward due to thoracic kyphosis and head forward (tall man). unsteady with dual task deviate ~ 6-12 out of path with increased distance and distraction but able to correct. Stairs reciprocal pattern with unilateral rail at ample speed with appropriate foot placement. head turn limited due to restricted cervical mobility. Ramp at sidewalk difficulty due to inability to see change in sidewalk grade, difficulty assessing height of curb and transition to flat ground from ramp - did instruct in use of SPC which allowed compensation for same. tandem R post = 12 sec, L post = 8 sec EO Tinetti step up safe and steady with rail SLS 5-8 sec L, R= 12 sec Posture head forward, thoracic kyhposis, protruding abdomen, tends to lean back in chair w wide base Other/Pertinent Objective smooth pursuits saccade w R gaze. target saccade ok VOR gaze stab no deficit noted . Convergence ~ 12 with L eye course downward as lost focus. (uses reading glasses, not wearing today) Able to forward bend and pickup object from floor with stability and decent mechanics (wide base using hip and knee flex) without UE assist but slowed pace. Functional Test Performed & Score * Tinetti (<=19 indicates elevated fall risk) *Activities-specific Balance Confidence (ABC) Scale Summary 1. Walk around the house? Confidence walking around the house: 80 / 100 (80 points) 2. Walk up or down stairs? Confidence walking up or down stairs: 80 / 100 (80 points) 3. Bend over and diamond picker a slipper from the front of a closet floor? Confidence bending over (e.g. to diamond picker slipper): 80 / 100 (80 points) 4. Reach for a small can off a shelf at eye level? Confidence reaching for a can at eye level: 90 / 100 (90 points) 5. Stand on your tip toes and reach for something above your head? Confidence standing on tip toes, reaching above head: 80 / 100 (80 points) 6. Stand on a chair and reach for something? Confidence standing on a chair and reachin / 100 (70 points) 7. Sweep the floor? Confidence sweeping the floor: 90 / 100 (90 points) 8. Walk outside the house to a car parked in the driveway? Confidence walking outside home to car in driveway: 90 / 100 (90 points) 9. Get into or out of a car? Confidence getting into or out of car: 80 / 100 (80 points) 10. Walk across a parking lot to the mall? Confidence walking across parking lot to mall: 80 / 100 (80 points) 11. Walk up or down a ramp? Confidence walking down a ramp : 80 / 100 (80 points) 12. Walk in a crowded mall where people rapidly walk past you? Confidence walking in crowded mall with people walking rapidly: 70 / 100 (70 points) 13. Are bumped into by people as you walk through the mall? Confidence when bumped into by people walking at mall: 70 / 100 (70 points) 14. Step onto or off of an escalator while you are holding onto a railing? Confidence stepping on or off escalator holding railin / 100 (90 points) 15. Step on/off escalator holding parcels so cannot hold railing? Confidence stepping on or off escalator not holding railing : 70 / 100 (70 points) 16. Walk outside on icy sidewalks? Confidence walking on icy sidewalks: 60 / 100 (60 points) The tools listed on this website do not substitute for the informed opinion of a licensed physician or other health care provider. All scores should be re- checked. Please see our full Terms of Use. Total ABC score: 1260/1600=78.8 percent Assessment Assessment/Impression Patient is pleasant 83 yo male referred to physical therapy for unsteady gait by provider following well visit. He is accompanied by Lizzy who is in and out of session. He reports some tingling in feet particularly the toes but has not assigned any trigger nor timeline of symptoms. He does have hx of stented coronary artery, mitral valve repair and inguinal hernia repair. A mention of atrial fibrillation is noted in chart, and he has been following with [facility] in [place] for cognitive impairment, per MD note is on 2 medications for same. Patient is tall and broad shoulder, is not, and she would have difficulty physically assisting to rise, should he fall. He presents today with good overall balance though deficits do remain in balance reaction strategies and uneven surfaces, eyad with darkened vision. Patient reports specific difficulty with slanted/sloped sidewalk partially due to macular degeneration of R eye inhibiting depth perception as well as light sensitivity and difficulty accommodating this external perturbation. Today he was able to compensate with this using SPC in dominant R hand, instructed in use of cane to tap ahead to find solid ground, to audio video repairer depth of curb, ramp or step, and to find transition areas of walking surface. Did instruct and trial use of SPC, unilateral and B hiking sticks . Single point cane is best option due to ability for additional support and is device patient states he is most comfortable with. Will send order to provider for signature then will call patient when it is returned to us so they can take it to DME supplier of choice as we do not carry medical supplies here for sale. Patient was instructed in use of SPC on stairs also. He declines further physical therapy intervention at this time, will hold chart 30 days in case of worseing symptoms or if he changes his mind. also present and aware of POC. Primary Functional Limitations gait, balance, partial visual deficit on R Plan of Care Rehabilitation Potential Good Rehabilitation Potential Comments cognition/memory impairments, patient declines further intervention at this time. Physical Therapy Goals 1) Pt demo gait with least restrictive yet appropriate gait aid without unusual path deviation. 2) Pt order obtained for single point cane (SPC) 3) Pt demo use of SPC for path finding eyad outside with decreased presicion of vision in R eye due to macular degeneration. $) Pt report no falls x 1 month Coordination/Communication With Referral Source Treatment Plan/Direct Interventions Gait Training,Manual Therapy, Neuromuscular Re-ed,Self-Care/ Home Management,Therapeutic Activities,Therapeutic Exercises Frequency/Duration consents to initial eval and treat, patient states he does not feel he needs additional visits but not so certain . will leave chart open 30 days in caase patient changes his mind or if they discover additional areas of concern regarding patient balance and gait. Patient Will Be Discharged From Therapy Completion of LTG(s),Skills Plateau,Independent w/HEP, Independently Progressing Discharge Plan Comments This will serve as discharge should patient not return. Evaluation Billing Untimed Code Treatment Minutes 25 Complexity Low Certification Information Initial Certification Date 01/28/24 Ending Certification Date 04/26/24 Provider Signature Required Yes Provider Signature Shows Agreement With POC & Medical Necessity Physician NPI Number Write NPI# Here Physician Comment/Change : Physician Signature & Date Requested Please Sign/Date Here
== END 2024-05-27 23:59 | disposition home or self-care (01) ==
PROVIDERS: PCP Family Medicine; Visit Provider Family Medicine
DX: R26.89 Other abnormalities of gait and mobility (principal); R26.81 Unsteadiness on feet; Z51.89 Encounter for other specified aftercare
CPT/HCPCS: 97112; 97116; 97161

== ENCOUNTER 2024-12-16 09:00 | Outpatient (RCR) | payer MEDICARE, BC, SELFPAY ==
--- NOTE | 2024-11-11 15:00 | PT.OPE ---
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 Onset insidious about one month ago. No PMHx of difficulty sleeping. Did have R sided sciatica which was treated effectively in PT. No injury to the R hip. Also experiences R hip pain after sustained standing of 1-2 minutes. Date of Last 11/05/24 Physician Visit Current Work Status Retired Occupation Mailman Precautions Weight Bearing Full Weight Bearing Status Therapy Limitations/ Not Limited Systems Review Objective Range of Motion R hip showed resistance and soreness to ER+FLEX stretching. Strength R hip strength 4+/5 with pain upon applying resistance. Palpation Tender over R gluteus medius, robyn and piriformis muscles. Balance & Gait Walks with short strides, absent trunk:pelvis dissociation or arm swing. Posture Decreased lumbar lordosis, forward trunk flexion Assessment Assessment/ Hunter is a pleasant 84 year old man referred to PT Impression because of R lateral hip pain. It appears his hip ER's and ABD's are tight, weak and tender to direct pressure . The greater trochanteric bursa is not tender. Limited joint mobility in the SI or lumbar joints. A skilled PT program addressing the loosening/stretching of the lateral hip muscles along with strength work to the same is suggested. Primary Functional Sleeping Limitations Standing Walking Plan of Care Rehabilitation Good Potential Physical Therapy 1.Able to lay upon the R side in his bed x 30 min or Goals more without R hip irritation. 2.Improve R hip ABD by 1/2 grade to allow improved lifting and bed mobility. 3.Able to stand x 2-3 min.s without limitation for R hip discomfort while in nondenominational. Coordination/ Referral Source Communication With Treatment Plan/ Heat,Ice/Cold/Vasopneumatic,Joint Mobilization,Manual Direct Interventions Therapy,Self-Care/Home Management,Therapeutic Activities,Therapeutic Exercises Frequency/Duration 1-2x per week 4-12 weeks Patient Will Be Independent w/HEP,Independently Progressing Discharged From Therapy Evaluation Billing Untimed Code 30 Treatment Minutes PT Eval No Charge No Complexity Low Certification Information Initial 11/11/24 Certification Date Ending Certification 02/11/25 Date Provider Signature Yes Required Provider Signature POC & Medical Necessity Shows Agreement With Physician NPI Number Write NPI# Here Physician Comment/ : Change Physician Signature Please Sign/Date Here & Date Requested
== END 2024-12-16 09:44 | disposition home or self-care (01) ==
PROVIDERS: PCP Family Medicine; Visit Provider Orthopaedic Surgery Sports Medicine
DX: M76.891 Other specified enthesopathies of right lower limb, excluding foot (principal); M51.362 Other intervertebral disc degeneration, lumbar region with discogenic back pain and lower extremity pain; Z51.89 Encounter for other specified aftercare
CPT/HCPCS: 97110; 97140; 97161

== ENCOUNTER 2025-04-16 11:47 | Outpatient (CLI) | payer MEDICARE, BC, SELFPAY | END 2025-04-16 11:48 | disposition home or self-care (01) | PROVIDERS: PCP Family Medicine; Visit Provider Family Medicine | DX: I10 Essential (primary) hypertension (principal); F09 Unspecified mental disorder due to known physiological condition; E78.2 Mixed hyperlipidemia | CPT/HCPCS: 80048; 80061; 82607 ==